=== PATIENT | female | born 2000 | race Caucasian/White ===

== ENCOUNTER 2021-11-04 08:30 | Inpatient (IN) ==
[2021-11-04] MEDS ORDERED: Naloxone 0.4 MG/ML INJ IVP PRN ×2 (11:03→14:32)
[2021-11-04] MEDS ORDERED: Famotidine 20 MG/2 ML VIAL IVP PRN (11:03)
[2021-11-04] MEDS ORDERED: Ondansetron 4 MG/2 ML VIAL IVP PRN ×2 (11:03→14:32)
[2021-11-04] MEDS ORDERED: Metoclopramide 10 MG/2 ML VIAL IVP PRN (11:03)
[2021-11-04] MEDS ORDERED: Azithromycin 500 MG in 0.9 % Sodium Chloride 250 ML IVPB PRN (11:03)
[2021-11-04] MEDS ORDERED: Clindamycin 900 MG/50 ML 900 MG/50 ML IV.SOLN IVPB ONE (11:10)
[2021-11-04] MEDS ORDERED: Ringers Solution, Lactated 1,000 ML ONE ×2 (11:13→16:27)
[2021-11-04] MEDS ORDERED: Oxytocin 30 UNIT/503 ML BAG IVC ONE (11:28)
[2021-11-04] MEDS ORDERED: Ropivacaine/PF 0.2% 20 ML VIAL ONE (13:19)
[2021-11-04] MEDS ORDERED: Epidural Premix (fent/bupiv) 110 ML EP ONE (13:49)
[2021-11-04] MEDS ORDERED: Vancomycin 1,500 MG/265 ML IV.SOLN IVPB SCH (14:00)
[2021-11-04 14:03] LABS: Nucleated Red Blood Cells 0.1 /100 WBC (0); Red Cell Distribution Width 17.2 % (11.5-14.5); Segmented Neutrophils % 92.6 %
[2021-11-04 14:04] LABS: Basophils % 0.1 %; Hematocrit 22.2 % (35.3-44.9); Hemoglobin 6.1 g/dL (11.5-15.4); Immature Granulocytes % 1.3 % (0-4); Lymphocytes # 0.5 K/mcL (0.6-4.6); Lymphocytes % 2.8 %; Mean Corpuscular HGB Conc 27.5 g/dL (31.6-35.5); Mean Corpuscular Volume 69.2 fL (83.0-100.0); Mean Platelet Volume 10.9 fL (9.4-12.4); Monocytes # 0.6 K/mcL (0.0-1.3); Monocytes % 3.2 %; Neutrophils # 17.6 K/mcL (1.6-8.9); Platelet Count 277 K/mcL (140-400); Red Blood Count 3.21 M/mcL (3.82-4.97)
[2021-11-04] MEDS ORDERED: Oxytocin 30 UNIT/503 ML BAG IVC SCH ×2 (14:15→19:07)
[2021-11-04] MEDS ORDERED: Ropivacaine/PF 0.2% 20 ML VIAL EP ONE (14:32)
[2021-11-04] MEDS ORDERED: EPHEDrine 50 MG/ML VIAL IVP PRN (14:32)
[2021-11-04 14:34] LABS: Anisocytosis 2+ (Not Present); Microcytosis Present (Not Present); Stomatocytes 1+ (Not Present)
[2021-11-04 14:35] LABS: Platelet Estimate Normal (Normal); Poikilocytosis 1+ (Not Present)
[2021-11-04] MEDS ORDERED: Epidural Premix (fent/bupiv) 110 ML EP SCH (14:45)
[2021-11-04] MEDS ORDERED: 0.9 % Sodium Chloride 500 ML ONE (19:01)
[2021-11-04] MEDS ORDERED: OXYTOCIN/RINGERS LACTATE 10 UNIT/166.6 ML BAG IVC ONE (19:07)
[2021-11-04] MEDS ORDERED: Rho Immune Globulin 1,500 UNIT SYRINGE IM PRN (19:07)
[2021-11-04] MEDS ORDERED: Lanolin 7 G OINT...G. TP PRN (19:07)
[2021-11-04] MEDS ORDERED: Ondansetron ODT 4 MG TAB.RAPDIS SL PRN (19:07)
[2021-11-04] MEDS ORDERED: Measles/Mumps/Rubella Vacc 0.5 ML VIAL SQ PRN (19:07)
[2021-11-04] MEDS ORDERED: Benzocaine/Menthol 56 GM AEROSOL SPRAY TP PRN (19:07)
[2021-11-04] MEDS: Acetaminophen 325 MG TABLET PO SCH (19:24)
[2021-11-04] MEDS ORDERED: Ibuprofen 600 MG TABLET PO SCH (21:26)
[2021-11-05] MEDS: Acetaminophen 325 MG TABLET PO SCH ×3 (04:23→17:42)
[2021-11-05 04:55] LABS: Basophils % 0.1 %
[2021-11-05 04:56] LABS: Eosinophils % 0.1 %; Hematocrit 19.9 % (35.3-44.9); Immature Granulocytes % 1.2 % (0-4); Lymphocytes # 0.9 K/mcL (0.6-4.6); Lymphocytes % 5.6 %; Mean Corpuscular HGB Conc 29.6 g/dL (31.6-35.5); Mean Corpuscular Hemoglobin 20.9 pg (28.0-33.3); Mean Corpuscular Volume 70.6 fL (83.0-100.0); Mean Platelet Volume 10.8 fL (9.4-12.4); Monocytes # 0.9 K/mcL (0.0-1.3); Monocytes % 5.9 %; Nucleated Red Blood Cells 0.3 /100 WBC (0); Platelet Count 237 K/mcL (140-400); Red Blood Count 2.82 M/mcL (3.82-4.97); Red Cell Distribution Width 18.9 % (11.5-14.5); Segmented Neutrophils % 87.1 %; White Blood Count 15.9 K/mcL (4.3-11.1)
[2021-11-05 05:35] LABS: Hemoglobin 5.9 g/dL (11.5-15.4); Neutrophils # 13.9 K/mcL (1.6-8.9)
[2021-11-05 05:39] LABS: Anisocytosis 1+ (Not Present); Platelet Estimate Normal (Normal); Polychromasia 1+ (Not Present)
[2021-11-05] MEDS ORDERED: 0.9 % Sodium Chloride 250 ML ONE (06:35)
[2021-11-05] MEDS: Prenatal Vit/FA 1 EACH TABLET PO SCH (08:05)
[2021-11-05] MEDS: Docusate Oral Soln 100 MG/10 ML UDC PO SCH ×2 (08:07→21:03)
[2021-11-05 13:45] LABS: Amphetamine Screen,Urine Negative ng/mL (Cutoff=1000); Barbiturate Screen,Urine Negative ng/mL (Cutoff=200); Benzodiazepines Screen,Urine Negative ng/mL (Cutoff=200); Cannabinoid Screen,Urine Negative ng/mL (Cutoff = 50); Cocaine Screen,Urine Negative ng/mL (Cutoff= 300); Opiate Screen,Urine Negative ng/mL (Cutoff=300); Phencyclidine Screen,Urine Negative ng/mL (Cutoff=25)
[2021-11-05 15:56] LABS: Basophils % 0.2 %; Eosinophils % 0.1 %; Hematocrit 22.6 % (35.3-44.9); Hemoglobin 6.7 g/dL (11.5-15.4); Lymphocytes # 1.6 K/mcL (0.6-4.6); Lymphocytes % 9.5 %; Mean Corpuscular HGB Conc 29.6 g/dL (31.6-35.5); Mean Corpuscular Hemoglobin 21.8 pg (28.0-33.3); Mean Corpuscular Volume 73.4 fL (83.0-100.0); Mean Platelet Volume 10.8 fL (9.4-12.4); Monocytes # 0.6 K/mcL (0.0-1.3); Monocytes % 3.8 %; Neutrophils # 13.8 K/mcL (1.6-8.9); Nucleated Red Blood Cells 0.5 /100 WBC (0); Platelet Count 234 K/mcL (140-400); Red Blood Count 3.08 M/mcL (3.82-4.97); Red Cell Distribution Width 20.6 % (11.5-14.5); Segmented Neutrophils % 83.4 %; White Blood Count 16.6 K/mcL (4.3-11.1)
[2021-11-05] MEDS: Cyanocobalamin (B-12) 1,000 MCG/ML VIAL IM SCH (17:44)
[2021-11-05] MEDS ORDERED: 0.9 % Sodium Chloride 500 ML ONE (18:17)
[2021-11-06 01:14] VITALS: TEMP 98.2
[2021-11-06] MEDS: Acetaminophen 325 MG TABLET PO SCH (04:43)
[2021-11-06 04:59] LABS: Basophils # 0.1 K/mcL (0.0-0.2); Basophils % 0.8 %; Eosinophils # 0.1 K/mcL (0.0-0.6); Eosinophils % 0.5 %; Hematocrit 24.7 % (35.3-44.9); Immature Granulocytes % 4.1 % (0-4); Lymphocytes # 2.3 K/mcL (0.6-4.6); Lymphocytes % 16.4 %; Mean Corpuscular HGB Conc 30.8 g/dL (31.6-35.5); Mean Corpuscular Hemoglobin 22.9 pg (28.0-33.3); Mean Corpuscular Volume 74.4 fL (83.0-100.0); Mean Platelet Volume 10.5 fL (9.4-12.4); Monocytes # 1.1 K/mcL (0.0-1.3); Monocytes % 7.8 %; Neutrophils # 9.7 K/mcL (1.6-8.9); Nucleated Red Blood Cells 0.6 /100 WBC (0); Platelet Count 215 K/mcL (140-400); Red Blood Count 3.32 M/mcL (3.82-4.97); Red Cell Distribution Width 20.2 % (11.5-14.5); Segmented Neutrophils % 70.4 %; White Blood Count 13.8 K/mcL (4.3-11.1)
[2021-11-06 05:00] LABS: Hemoglobin 7.6 g/dL (11.5-15.4)
[2021-11-06 07:04] VITALS: BP 109/54; PULSE 69; O2SAT 99
[2021-11-06] MEDS: Prenatal Vit/FA 1 EACH TABLET PO SCH (07:56)
[2021-11-06] MEDS: Cyanocobalamin (B-12) 1,000 MCG/ML VIAL IM SCH (07:57)
[2021-11-06] MEDS: Docusate Oral Soln 100 MG/10 ML UDC PO SCH (07:58)
== END 2021-11-06 11:05 | disposition home or self-care (01) | DRG 560 ==
LOC: 1NENULAB → 1NENUOBS 20:19
PROVIDERS: ADMIT Obstetrics & Gynecology; ATTEND Obstetrics & Gynecology